=== PATIENT | male | born 1970 | race Caucasian/White ===

== ENCOUNTER → 2019-05-21 13:12 | Outpatient (CLI) | payer OTHER, SELFPAY | PROVIDERS: Visit Provider Physician Assistant | DX: L08.9 Local infection of the skin and subcutaneous tissue, unspecified (principal) | CPT/HCPCS: 87070; 87077; 87147; 87186; 87205 ==

== ENCOUNTER 2023-12-16 14:19 | Observation (INO) | payer OTHER, BC, SELFPAY ==
[2023-12-16] VITALS (41 sets, daily range): BP systolic 116–173; BP diastolic 78–100; PULSE 90–136; RESP 10–22; TEMP 36.3–36.8; O2SAT 91–100; BMI 28.5; BMI 27.6
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
[2023-12-16 15:01] LABS: Add Manual Diff / Slide Review NO; Basophils Absolute Auto 0 /uL (0-100); Basophils Percent Auto 0.6 % (0-2); Eosinophils Absolute Auto 0 /uL (0-450); Eosinophils Percent Auto 0.1 % (2-4); Hematocrit 44.2 % (41-53); Hemoglobin 15.1 g/dL (13.5-17.5); Lymphocytes Absolute Auto 1800 /uL (1100-4500); Lymphocytes Percent Auto 29.5 % (25-40); Mean Corpuscular HGB Conc 34.1 % (30-36); Mean Corpuscular Hemoglobin 31.9 PG (26-34); Mean Corpuscular Volume 93.4 fL (80-100); Monocytes Absolute Auto 600 /uL (0-900); Monocytes Percent Auto 10.4 % (3-14); Neutrophils Absolute Auto 3600 /uL (1500-7000); Neutrophils Percent Auto 59.4 % (50-75); Platelet Count 188 X10^3/uL (150-400); Red Blood Cell Count 4.73 X10^6/uL (4.5-5.9); Red Cell Distribution Width 13.2 % (11.6-14.8)
[2023-12-16 15:03] LABS: INR 1.2 (0.9-1.3); Prothrombin Time 13.8 SECONDS (9.4-12.5)
[2023-12-16 15:05] LABS: PTT Partial Thromboplastin Tim 34 SECONDS (25.1-36.5)
[2023-12-16 15:09] LABS: Alanine Aminotransferase 69 IU/L (<50); Albumin 4.5 g/dL (3.5-5.0); Albumin Globulin Ratio 1.5 (1.0-2.8); Alkaline Phosphatase 92 U/L (38-126); Aspartate Aminotransferase 117 IU/L (17-59); BUN Creatinine Ratio 11.3 (6-22); Blood Urea Nitrogen 7 mg/dL (9-20); Calcium 9.3 mg/dL (8.4-10.2); Carbon Dioxide 19 mmol/L (22-32); Chloride 101 mmol/L (98-107); Creatine Kinase 70 U/L (55-170); Estimated Glomerular Filt Rate > 60 mL/min (>60); Ethanol (ETOH) 83 mg/dL; Globulin 3.1 g/dL (1.7-4.1); Glucose 394 mg/dL (70-100); HEMOLYSIS 17 (0-50); Lipase 158 U/L (23-300); Potassium 4.2 mmol/L (3.4-5.1); Sodium 134 mmol/L (137-145); Total Protein 7.6 g/dL (6.3-8.2)
[2023-12-16] MEDS: SODIUM CHLORIDE 0.9% 1,000 ML 1000 ML IV (15:15)
[2023-12-16] MEDS: HYDROMORPHONE 0.5 MG INJ IV (15:16)
[2023-12-16] MEDS: ONDANSETRON 4 MG/2 ML INJ IV (15:16)
[2023-12-16 15:20] LABS: Troponin I < 0.012 ng/mL (0.01-0.034)
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
[2023-12-16] MEDS: TRANEXAMIC ACID 1,000 MG in SODIUM CHLORIDE 0.9% 100 ML 200 MG IV (15:36)
[2023-12-16 16:10] LABS: UR Morphine/Opiate cutoff 300 Negative (Negative); Ur Creatinine Normal (Normal); Ur Specific Gravity Normal (Normal); Urine Amphetamines Negative (Negative); Urine Barbiturates Negative (Negative); Urine Benzodiazepines Negative (Negative); Urine Cocaine Negative (Negative); Urine MDMA Negative (Negative); Urine Methadone Negative (Negative); Urine Methamphetamines Negative (Negative); Urine Oxycodone Negative (Negative); Urine Phencyclidine Negative (Negative); Urine Tetrahydrocannabinol Positive (Negative); Urine Tricyclic Antidepressant Negative (Negative); Urine pH Normal (Normal)
[2023-12-16] MEDS: HYDROMORPHONE 1 MG INJ IV (16:11)
--- NOTE | 2023-12-16 16:15 | PC.NURSE ---
Green tinge noted to both patient's wrists. Pt reports wearing copper bracelets that turn his wrist green at times. Pt denies any pain in both wrists.
[2023-12-16 16:28] LABS: Bacteria Urine Occasional (0-1); Culture Indicated Urine Cult Not Indicated; RBC Urine 5-10/HPF (0-5/HPF); Squamous Epithelial Cell Urine 0-1 /HPF (0-5/HPF); Urine Volume 10mL (spun); WBC Urine 0-1/HPF (0-5/HPF)
[2023-12-16 16:33] LABS: Reflexed Lactate in 2 Hours Y
--- NOTE | 2023-12-16 17:30 | PC.NURSE ---
7023 Cervical spine cleared by Dr Denise. C Collar removed
[2023-12-16 17:37] LABS: Hematocrit 41.6 % (41-53); Hemoglobin 14.2 g/dL (13.5-17.5)
[2023-12-16 17:49] LABS: Lactate 2HR (Lactic Acid Rflx) 2.5 mmol/L (0.7-2.1)
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
[2023-12-16] MEDS: SODIUM CHLORIDE 0.9% 1,000 ML 100 ML IV (18:14)
[2023-12-16] MEDS: GABAPENTIN 300 MG CAPSULE PO ×2 (18:15→21:03)
--- NOTE | 2023-12-16 18:40 | PC.NURSE ---
1455: Abrasions noted to LEFT elbow. Contusions noted to RIGHT and LEFT knee.
--- NOTE | 2023-12-16 20:35 | PC.NURSE ---
Clarified orders with Dr. Sanchez. COntinue BS Q6 hours. General diet. Start home meds of lisinopril and glipizide. No repeat lactate, continue fluids.
[2023-12-16] MEDS: OXYCODONE IR 5 MG TABLET PO (21:03)
[2023-12-16] MEDS: IBUPROFEN 600 MG TABLET PO (21:03)
[2023-12-16] MEDS: ACETAMINOPHEN 325 MG TABLET 650 MG PO (21:06)
[2023-12-16] MEDS: INSULIN LISPRO 100 UNIT/ML 3ML VIAL SUBCUT (21:30)
[2023-12-17] VITALS: BP 130/76; PULSE 87; RESP 18; TEMP 36.4; O2SAT 99
[2023-12-17] MEDS: SODIUM CHLORIDE 0.9% 1,000 ML 100 ML IV ×2 (00:59→11:08)
[2023-12-17 03:00] VITALS: BP 129/71; PULSE 91; RESP 17; TEMP 36.3; O2SAT 97
[2023-12-17] MEDS: ACETAMINOPHEN 325 MG TABLET 650 MG PO ×3 (03:06→14:49)
[2023-12-17] MEDS: IBUPROFEN 600 MG TABLET PO ×3 (03:07→14:48)
[2023-12-17] MEDS: INSULIN LISPRO 100 UNIT/ML 3ML VIAL SUBCUT ×3 (03:51→12:32)
[2023-12-17 05:31] LABS: Hematocrit 39.4 % (41-53); Hemoglobin 13.7 g/dL (13.5-17.5); Mean Corpuscular HGB Conc 34.8 % (30-36); Mean Corpuscular Hemoglobin 32.3 PG (26-34); Mean Corpuscular Volume 92.8 fL (80-100); Platelet Count 147 X10^3/uL (150-400); Red Blood Cell Count 4.24 X10^6/uL (4.5-5.9); Red Cell Distribution Width 12.9 % (11.6-14.8); White Blood Cell Count 6.2 X10^3/uL (4.5-11.0)
[2023-12-17 05:43] LABS: Alanine Aminotransferase 53 IU/L (<50); Albumin 3.5 g/dL (3.5-5.0); Albumin Globulin Ratio 1.3 (1.0-2.8); Alkaline Phosphatase 75 U/L (38-126); Aspartate Aminotransferase 70 IU/L (17-59); BUN Creatinine Ratio 21.4 (6-22); Bilirubin Total 1.3 mg/dL (0.2-1.3); Blood Urea Nitrogen 12 mg/dL (9-20); Calcium 8.6 mg/dL (8.4-10.2); Carbon Dioxide 25 mmol/L (22-32); Chloride 106 mmol/L (98-107); Estimated Glomerular Filt Rate > 60 mL/min (>60); Globulin 2.7 g/dL (1.7-4.1); Glucose 227 mg/dL (70-100); HEMOLYSIS 15 (0-50); Potassium 3.8 mmol/L (3.4-5.1); Sodium 135 mmol/L (137-145); Total Protein 6.2 g/dL (6.3-8.2)
[2023-12-17 08:00] VITALS: BP 135/74; PULSE 89; RESP 20; TEMP 36.6; O2SAT 97
[2023-12-17] MEDS: GABAPENTIN 300 MG CAPSULE PO ×2 (09:20→14:49)
[2023-12-17] MEDS: OXYCODONE IR 5 MG TABLET PO (11:08)
[2023-12-17 12:25] VITALS: BP 156/65
[2023-12-17] MEDS: lisinopriL 20 MG TABLET PO (12:25)
[2023-12-17] MEDS: glipiZIDE 5 MG TABLET 10 MG PO (12:28)
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
--- NOTE | 2023-12-17 13:43 | CM.DPC ---
D/C Plan Cont. Met with pt, per his request, to discuss his insurance concerns. He had not provided it at time of admission, and was needing to talk with one of the admission counselors to verify his insurance coverage for this hospital stay. He will d/c this afternoon. Emailed the Admission Counselors and requested an expedient visit to address this need. No further DCP needs identified at this time.
== END 2023-12-17 15:51 | disposition home or self-care (01) ==
LOC: ED 15:49 → AC 18:01
PROVIDERS: Admitting Provider Surgery; Emergency Provider Emergency Medicine; Referring Provider Emergency Medicine; Visit Provider Surgery
DX: R51.9 Headache, unspecified (principal); R07.89 Other chest pain; R10.9 Unspecified abdominal pain; S16.1XXA Strain of muscle, fascia and tendon at neck level, initial encounter; R00.0 Tachycardia, unspecified; V48.5XXA Car driver injured in noncollision transport accident in traffic accident, initial encounter; Y92.410 Unspecified street and highway as the place of occurrence of the external cause
CPT/HCPCS: 36415; 70450; 71260; 72125; 74177; 80053; 80305; 80320; 81003; 81015; 82550; 82962; 83605; 83690; 84484; 85014; 85018; 85025; 85027; 85610; 85730; 86850; 86900; 86901; 93005; 96361; 96365; 96372; 96375; 96376; 99284; 99291; G0378; G0390; J1170; J1815; J2405; Q9967

== ENCOUNTER → 2024-03-01 09:02 | Outpatient (CLI) | payer BC, SELFPAY ==
[2023-12-16 18:57] VITALS: BMI 27.6
[2024-03-01 10:08] LABS: Add Manual Diff / Slide Review NO; Basophils Absolute Auto 100 /uL (0-100); Eosinophils Absolute Auto 100 /uL (0-450); Eosinophils Percent Auto 0.7 % (2-4); Hematocrit 46.7 % (41-53); Hemoglobin 16.2 g/dL (13.5-17.5); Lymphocytes Absolute Auto 1900 /uL (1100-4500); Lymphocytes Percent Auto 26.2 % (25-40); Mean Corpuscular HGB Conc 34.7 % (30-36); Mean Corpuscular Hemoglobin 31.9 PG (26-34); Monocytes Absolute Auto 700 /uL (0-900); Monocytes Percent Auto 9.6 % (3-14); Neutrophils Absolute Auto 4600 /uL (1500-7000); Neutrophils Percent Auto 62.5 % (50-75); Platelet Count 208 X10^3/uL (150-400); Red Blood Cell Count 5.07 X10^6/uL (4.5-5.9); Red Cell Distribution Width 12.9 % (11.6-14.8); White Blood Cell Count 7.4 X10^3/uL (4.5-11.0)
[2024-03-01 10:31] LABS: Hemoglobin A1C% w Est Avg Glu 10.1 % (4.0-6.0)
[2024-03-01 10:32] LABS: Alanine Aminotransferase 119 IU/L (<50); Albumin 4.7 g/dL (3.5-5.0); Albumin Globulin Ratio 1.4 (1.0-2.8); Alkaline Phosphatase 112 U/L (38-126); Aspartate Aminotransferase 108 IU/L (17-59); BUN Creatinine Ratio 8.7 (6-22); Bilirubin Total 0.8 mg/dL (0.2-1.3); Blood Urea Nitrogen 6 mg/dL (9-20); Calcium 9.4 mg/dL (8.4-10.2); Carbon Dioxide 25 mmol/L (22-32); Chloride 95 mmol/L (98-107); Cholesterol 188 mg/dL (140-199); Estimated Glomerular Filt Rate > 60 mL/min (>60); Globulin 3.3 g/dL (1.7-4.1); Glucose 400 mg/dL (70-100); HDL Cholesterol 65 mg/dL (40-60); HEMOLYSIS < 15 (0-50); LDL Cholesterol Calculated 96 mg/dL (<100); Sodium 131 mmol/L (137-145); Triglycerides 137 mg/dL (35-150)
== END ==
PROVIDERS: PCP Family Medicine; Referring Provider Family Medicine; Visit Provider Family Medicine
DX: I10 Essential (primary) hypertension (principal); E11.9 Type 2 diabetes mellitus without complications
CPT/HCPCS: 36415; 80053; 80061; 83036; 85025

== ENCOUNTER → 2024-03-08 12:14 | Outpatient (CLI) | payer BC, SELFPAY ==
[2023-12-16 18:57] VITALS: BMI 27.6
--- NOTE | 2024-03-08 15:00 | DI.CT.S_ITS ---
PROCEDURE: CT ABDOMEN PELVIS W CON INDICATIONS: evaluate previous trauma TECHNIQUE: After the administration of intravenous contrast, axial sections acquired from the lung bases to the pubic symphysis. Coronal and sagittal reformats were performed. For radiation dose reduction, the following was used: automated exposure control, adjustment of mA and/or kV according to patient size. COMPARISON: [facility], CT, CT ABDOMEN PELVIS WITH CONTRAST, 12/21/2023, 23:36. FINDINGS: Image quality: Diagnostic. Lower Chest: No significant findings. ABDOMEN: Liver: Hepatic steatosis. A few foci of hyperattenuation in the liver, including a 9 mm lesion in segment 6 (series 2, image 37), and a 1.3 cm lesion at the liver dome (series 2, image 14). Additional subcentimeter hypoattenuating lesions, too small to characterize by CT. Gallbladder: No radiopaque gallstones or wall thickening. Biliary ducts: No biliary dilation. Pancreas: No ductal dilation. Spleen: Size is within normal limits. Adrenal Glands: No adrenal nodules. Kidneys and Ureters: No hydronephrosis. No solid mass. No complex renal cystic lesion which requires follow up. Fluid collection in the left perirenal space measures a 7.2 x 3.3 cm, previously 3.2 x 4.1 cm on 12/21/2023. This exerts mass effect along the superior pole of the left kidney, similar to prior. Stomach and Bowel: Normal colonic caliber, without significant wall thickening. Colonic diverticulosis without evidence of diverticulitis. Peritoneum: No abnormal intraperitoneal fluid. No free air. Ventral Wall: No significant ventral hernia. Abdominal Nodes: No retroperitoneal or mesenteric adenopathy by size criteria. Vessels: Aorta and inferior vena cava are normal in size. PELVIS: Pelvic Organs: Unremarkable. Bladder: No bladder wall thickening, accounting for underdistention. Pelvic Nodes: No enlarged lymph nodes. Miscellaneous: No inguinal hernias are seen. Bones: No aggressive osseous abnormality. IMPRESSION: Slight interval growth of the cystic collection in the left perirenal space, with mass effect upon the left kidney. Lesion is probably benign, sequela of cyst rupture or trauma, given no internal complexity. However, given interval growth, consider complete characterization with MRI (renal mass protocol). Hepatic steatosis. Small hyperattenuating lesions are present within the liver, usually representing flash filling hemangiomas or vascular shunts. Given underlying risk factors (hepatic steatosis), this should be further evaluated with MRI. Dictated by: Jesus Hensley M.D. on 03/08/2024 at 14:02 Approved by: Jesus Hensley M.D. on 03/08/2024 at 14:24
== END ==
PROVIDERS: PCP Family Medicine; Referring Provider Family Medicine; Visit Provider Family Medicine
DX: S36.039A Unspecified laceration of spleen, initial encounter (principal); K76.0 Fatty (change of) liver, not elsewhere classified; R19.00 Intra-abdominal and pelvic swelling, mass and lump, unspecified site; Z87.828 Personal history of other (healed) physical injury and trauma
CPT/HCPCS: 74177; Q9967

== ENCOUNTER → 2024-03-14 12:49 | Outpatient (CLI) | payer BC, SELFPAY ==
[2023-12-16 18:57] VITALS: BMI 27.6
--- NOTE | 2024-03-14 12:50 | DI.MRI.S_ITS ---
PROCEDURE: MR ABDOMEN WO/W CON INDICATIONS: CT showed cyst with interval growth TECHNIQUE: Coronal HASTE through abdomen and pelvis; axial 2D FLASH in- and jms-cm-opibp (with and without fat saturation), and breath-hold T2 FSE from the hepatic dome to the bottom of the kidneys. Coronal HASTE MR urogram of kidneys and bladder. Dynamic coronal VIBE during IV gadolinium administration; postgadolinium axial VIBE or 2D FLASH with fat saturation from the hepatic dome through the kidneys. COMPARISON: [facility], CT, CT CHEST ABD PEL W CON, 12/16/2023, 14:59. [facility], CT, CT ABDOMEN PELVIS W CON, 03/08/2024, 13:14. [facility], CT, CT ABDOMEN PELVIS WITH CONTRAST, 12/21/2023, 23:36. FINDINGS: Image quality: Diagnostic. Kidneys and Ureters: No hydronephrosis. No solid mass. Left kidney superior pole cyst measuring 5.1 x 3.6 cm, (11/13), previously remeasured 4.7 x 3 cm, and 4.2 x 2.7 cm, and more remotely 10.1 x 7.6 cm on 12/16/2023. Homogeneous T2 hyperintense. OTHER: Lung bases: Prior inferior right-sided rib fractures. No pleural effusion. Liver: A few tiny cysts. Hepatic steatosis. A few small enhancing foci are again seen, (, 54). No convincing restricted diffusion. Gallbladder: No gallstones or wall thickening. Biliary ducts: No biliary dilation. Pancreas: No ductal dilation. Spleen: Size is within normal limits. Adrenal Glands: No adrenal nodules. Stomach and Bowel: Normal colonic caliber, without significant wall thickening. Peritoneum: No abnormal intraperitoneal fluid. No free air. Ventral Wall: No hernia. Abdominal Nodes: No retroperitoneal or mesenteric adenopathy by size criteria. Vessels: Aorta and inferior vena cava are normal in size. Bones: Small T2 hyperintense foci at L1, (02/09). Suspect small intraosseous hemangioma. IMPRESSION: 1. Left kidney superior pole cyst measuring 5.1 cm, slightly increased in size. Of note, the cyst head previously substantially decreased in size. Previously measuring 10.1 cm on in November 2023. No suspicious enhancement. Suspect a benign cyst which is reaccumulating. 2. Hepatic steatosis. Small enhancing foci in the liver. Suspect small benign hemangiomas or perfusion abnormalities. Consider follow-up CT abdomen and pelvis or MRI renal protocol. Dictated by: Cisco Hicks M.D. on 03/14/2024 at 15:30 Approved by: Cisco Hicks M.D. on 03/14/2024 at 15:50
== END ==
PROVIDERS: PCP Family Medicine; Referring Provider Family Medicine; Visit Provider Family Medicine
DX: N28.89 Other specified disorders of kidney and ureter (principal); N28.1 Cyst of kidney, acquired; K76.0 Fatty (change of) liver, not elsewhere classified; K76.9 Liver disease, unspecified
CPT/HCPCS: 74183; A9579

== ENCOUNTER → 2024-05-04 11:02 | Outpatient (CLI) | payer BC, SELFPAY ==
[2023-12-16 18:57] VITALS: BMI 27.6
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
== END ==
PROVIDERS: PCP Family Medicine; Referring Provider Family Medicine
DX: E11.9 Type 2 diabetes mellitus without complications (principal); Z71.3 Dietary counseling and surveillance; Z79.4 Long term (current) use of insulin; Z79.84 Long term (current) use of oral hypoglycemic drugs
CPT/HCPCS: G0108

== ENCOUNTER → 2024-05-20 14:52 | Outpatient (CLI) | payer BC, SELFPAY ==
[2023-12-16 18:57] VITALS: BMI 27.6
--- NOTE | 2024-05-20 17:49 | DIAB.MNT ---
Initial Diabetes Medical Nutrition Therapy Assessment Name: Igor Howard Date: 05/20/24 Time: 3-415p Dx: Type II Diabetes Provider: Reva Costa presents for MNT DM visit. Reports having T2Dm for a few years and has not had previous DM education. Does endorse continued social barriers and stress with disability leave of absence from work being rejected. Worries immensely about financial situation. May be able to move in with father, but does not prefer this. Feels his health is a barrier to returning to work. Financial barriers impact his ability to access food. endorses $60 of SNAP benefits. Has not been able to reduce spiked tea intake. Each tea seems to have 50g CHO. 250-300g CHO just from spiked tea per day. Today combined with two slices of pizza he is experiencing BG in the 390s. States he sips on spiked tea instead of water during the day. States his water filter needs replacement and he has the filter. Diet recall: 12-1p: 2 pizza slices 6-8p: 2 pizza slices Limited water TID Spiked tea: 5-6 per day Plans to start naltrexone. Continued stress is impacting his ability to reduce ETOH per report. Endorses nausea, emesis, and fatigue, which may be r/t elevated BG and excessive CHO and ETOH intake. Started counseling. Has 2 daughters, one that he confides in though lives in [place]. Anthropometrics: Ht: 6' Wt: 207# 04/2024 Physical Activity: No program. Self-Monitoring Blood Glucose: Checking FBG. Denies any s/s of hypoglycemia. Very slight improvement in FBG but still elevated. If CHO cannot be reduced, may need additional DM medication. Today we placed a Dexcom G7 sample per pt request. RD/CDCES thinks this is a recommended therapy to help pt reduce BG, avoid hypoglycemia, and determine BG trends. Date Pre Post Pre Post Pre Post HS 05/14 254 05/15 259 05/16 251 05/17 206 05/18 246 05/19 252 05/20 224 Diabetes Medications: 42u Glargine 10mg Glipizide Pertinent Labs: HgA1c: 10.1% 02/2024 Past Medical History: (Last Updated 03/01/24 @ 08:40 by Cherie Ardon DO) Acute strain of neck muscle Diabetes Hypertension Nutrition Rx: Carbohydrates: Meal:45-60g Snack:15-30g Nutrition Diagnosis: - Excessive ETOH intake r/t stress drinking and cravings aeb pt report - Excessive CHO intake r/t ETOH spiked tea intake and stage of change preparation aeb diet recall and BG Intervention: This participant was very receptive. Provided appropriate educational handouts. Discussed the following topics: Social barriers, food insecurity and resources Strategies for reducing ETOH intake CGM Sample Reviewed CGM use and equipment Discussed when to check blood sugars using finger stick Reviewed high and low blood sugar signs/symptoms and treatment options Provided education for self-administration of CGM placement Educated patient on alarm settings Discussed how to remove and dispose of equipment Nutrition recommendations Plate Method, Carb counting, Carb recs, Carbs in spiked tea Hydration recommendations and strategies Rule of 15 for low BG Reducing ETOH spiked teas may greatly reduce BG, in which case he should reduce insulin by 10-20u prn Created SMART goals for patient self-care and success. Goals: Look into eye exam- not met Call 211 for resources- not met Reduce FBG by increase in basal insulin (2u q 2-3 days, do not go past 40u)- met Download CGM apps - met Aim fro 4 spiked tea, instead of 5-6- new Replace water filter- new Drink water throughout the day- new Practice Rule of 15 for lows prn- new Wear CGM- new Follow-up: TEDDY GUNN follow-up in 2-3 weeks. Messaged provider regarding CGM rx and plan for insulin. Mirian Collins RDN, LUIS A Certified Diabetes Care and Staffing Assistant P: [phone] Thank you for this referral
== END ==
PROVIDERS: PCP Family Medicine; Referring Provider Family Medicine
DX: E11.9 Type 2 diabetes mellitus without complications (principal); Z79.84 Long term (current) use of oral hypoglycemic drugs; Z79.4 Long term (current) use of insulin; Z71.3 Dietary counseling and surveillance
CPT/HCPCS: 97802

== ENCOUNTER → 2024-06-02 15:00 | Outpatient (CLI) | payer BC, SELFPAY ==
[2023-12-16 18:57] VITALS: BMI 27.6
--- NOTE | 2024-06-23 08:28 | DIAB.MNTFU ---
Follow-up Diabetes Medical Nutrition Therapy Assessment Name: Igor Howard Date: 06/02/24 Time: 305-405p Dx: Type II Diabetes Provider: Reva Costa presents for follow-up MNT DM visit. He is more optimistic today since he is seeing some progress in life in general. He is happy his insurance will cover CGM. He is down to 4 ETOH spiked teas per day, from 5-6/day. States the naltrexone was helpful in this change. Endorses slightly better sleep with medication helping restless leg. Still having difficulty with disability claims and finances, which is a big stress. he has applied for and approved for SNAP benefits. Considering a lower level job to help him financially while claims are being processed. would drink more water but needs to change filter, open to sf beverage options. States he would like to replace ETOH with mendel beer nonalcoholic, but this has 30g CHO per serving. Diet recall: 12-1p: 2 pizza slices 6-8p: 2 pizza slices or soup Limited water TID Spiked tea: 4 per day Anthropometrics: Ht: 6' Wt: 207# 04/2024 Physical Activity: No program. Self-Monitoring Blood Glucose: Wore CGM, persistent hyperglycemia. Likely needs additional DM meds, possibly mealtime insulin. Will share results with PCP and determine a plan. Notes h/o GI upset with Metformin. No hypoglycemia noted despite ETOH intake, likely due to sugared ETOH choices. TIR: 73% very high 24% high 3% in range 0% low 0% very low avmg/dl std dev: 70 mg/dl GMI: 10.6% variation: 22.9% Diabetes Medications: 42u Glargine 10mg Glipizide Pertinent Labs: HgA1c: 10.1% 02/2024 Past Medical History: (Last Updated 03/01/24 @ 08:40 by Cherie Ardon DO) Acute strain of neck muscle Diabetes Hypertension Nutrition Rx: Carbohydrates: Meal:45-60g Snack:15-30g Nutrition Diagnosis: - Excessive ETOH intake r/t stress drinking and cravings aeb pt report- improving/in progress - Excessive CHO intake r/t ETOH spiked tea intake and stage of change preparation aeb diet recall and BG - in progress Intervention: This participant was very receptive. Provided appropriate educational handouts. Discussed the following topics: Beverage choices with less CHO Hydration strategies Review of CGM data Stress management and potential for low level job Stress impact on health Label reading and carb recs What is going well for him Created SMART goals for patient self-care and success. Goals: Aim fro 4 spiked tea, instead of 5-6- met Replace water filter- not met Drink water throughout the day- in progress Practice Rule of 15 for lows prn- continued Wear CGM- met Try SF beverage options- new Aim for 3 ETOH spiked teas per day- new Look into low level job opportunities- new Follow-up: TEDDY GUNN follow-up in 2-3 weeks Mirian Collins RDN, LUIS A Certified Diabetes Care and Church Musician P: [phone] Thank you for this referral
== END ==
PROVIDERS: PCP Family Medicine; Referring Provider Family Medicine
DX: E11.65 Type 2 diabetes mellitus with hyperglycemia (principal); Z71.3 Dietary counseling and surveillance; G25.81 Restless legs syndrome; Z79.4 Long term (current) use of insulin; Z79.84 Long term (current) use of oral hypoglycemic drugs; Z68.27 Body mass index [BMI] 27.0-27.9, adult
CPT/HCPCS: 97803

== ENCOUNTER → 2024-06-09 16:50 | Outpatient (CLI) | payer BC, SELFPAY ==
[2023-12-16 18:57] VITALS: BMI 27.6
--- NOTE | 2024-06-23 08:38 | DIAB.FU ---
Follow-up Diabetes Education Assessment Name: Igor Howard Date: 06/09/24 Time: 516-890o Dx: Type II Diabetes Provider: Reva Costa presents for virtual DM visit via [facility]. Endorses drinking more non-ETOH tea recently. In the process of reducing sweetened ETOH intake. Replaced water filter, which helps with willingness to drink more water. Continues to have stress with financials and work leave situation. Endorses meditation, golf, drinking, marijuana, and video games (which he usually drinks ETOH during), is how he manages stress usually. States he may be able to afford going to golf course just to putt or range. Still considering a lower level job for financial reasons, but not committed to this idea. Was rx'd new med, Gisela. Has questions regarding this, ie arabella, . PCP would like for him to start SGLT2i and mealtime insulin, and continue sulfonlurea. Eating 2 meals per day: Am snack of almonds or apple, Dinner pasta or chowder. Spiked teas x 3-4 daily-- down from 5-6 Anthropometrics: Ht: 6' Wt: 207# 04/2024 Physical Activity: No program. Self-Monitoring Blood Glucose: Checking FBG, all elevated above 160mg/dl. Wore CGM up until last visit, which indicated consistent hyperglycemia. Most of the day/night he is >180mg/dl. States G7 may not be available, but he plans to call pharmacy regarding this. Date Pre Post Pre Post Pre Post HS 06/03 200 06/04 210 06/05 192 06/06 221 06/07 169 06/08 195 06/09 201 Previous TIR: 73% very high 24% high 3% in range 0% low 0% very low avmg/dl std dev: 70 mg/dl GMI: 10.6% variation: 22.9% Diabetes Medications: 42u Glargine 10mg Glipizide 10mg Jardiance 4u Aspart TID (with correction, up to 15u TID based on basal rate) Pertinent Labs: HgA1c: 10.1% 02/2024 Past Medical History: (Last Updated 03/01/24 @ 08:40 by Cherie Ardon DO) Acute strain of neck muscle Diabetes Hypertension Intervention: This participant was very receptive. Provided appropriate educational handouts. Discussed the following topics: Strategies for reducing ETOH intake CGM access troubleshooting Medication management: insulin injections at meals, Jardiance (SE, discussing cost with pharmacy/insurance) Rule of 15 for lows review Stress management strategies Created SMART goals for patient self-care and success. Goals: Replace water filter- met Practice Rule of 15 for lows prn- continued Try SF beverage options- in progress Aim for 3 ETOH spiked teas per day- improved Look into low level job opportunities- in progress Call pharmacy about meds- new Call pharmacy about CGM- new Consider golf 1x per week for stress management- new Follow-up: TEDDY GUNN follow-up in 2-3 weeks Mirian Collins RDN, LUIS A Certified Diabetes Care and Software Program Manager P: [phone] Thank you for this referral
== END ==
LOC: DIET 06-10 07:35
PROVIDERS: PCP Family Medicine; Referring Provider Family Medicine
DX: E11.9 Type 2 diabetes mellitus without complications (principal); Z71.3 Dietary counseling and surveillance; Z68.27 Body mass index [BMI] 27.0-27.9, adult

== ENCOUNTER → 2024-06-23 11:24 | Outpatient (CLI) | payer BC, SELFPAY ==
[2023-12-16 18:57] VITALS: BMI 27.6
--- NOTE | 2024-07-06 15:39 | DIAB.FU ---
Addendum entered by Mirian Collins 07/26/24 16:53: Phone call check in today. Lost employer insurance. Just started [facility] coverage-- [facility] [place]. CGM sensor . States CGM will not be affordable, $80/sensor. Taking mealtime insulin, 3-5u depending on carb portions. Agrees to call insurance sometime over the next few weeks to determine what the issue is about full coverage for CGM. Encouraged fingersticks in the meantime. Addendum entered by Mirian Collins 07/19/24 16:59: Issues with CGM sensor. Tried to replace with rx moss picker but pharmacy quoted $600. Not wearing a CGM. Not taking meal time insulin consistently. Discussed fingersticks and taking mealtime insulin. Encouraged troubleshooting CGM cost with pharmacy and Dexcom for replacement with problematic sensor. Will f/u next week. Addendum entered by Mirian Collins 07/12/24 16:28: Pt unable to access our virtual visit due to not being home. Is able to afford mealtime insulin. Will try 3u mealtime insulin at first meal and 4u at bigger evening meal Reviewed s/s and treatment of lows. Will r/s our visit within the next 2-3 weeks. Original Note: Follow-up Diabetes Education Assessment Name: Igor Howard Date: 06/23/24 Time: [id number] Dx: Type II Diabetes Provider: Reva Costa presents for virtual DM visit via [employer] [facility]. Father passed this week. Does have support with two sisters. Stopped the spiked tea and switched to unsweetened ETOH seltzers. Comparable to 3-4 spiked teas, but less sugar Increased stress with losing father. Discussed stress management especially during this time Not taking Jardiance due to waiting on insurance coverage. States short acting was $300, so could not pick this up. Likely needs change brand of insulin for better coverage. RD to call pharmacy. Pharmacy: [facility] Anthropometrics: Ht: 6' Wt: 207# 04/2024 Physical Activity: No program. Self-Monitoring Blood Glucose: Wearing CGM. Improved time in range, though still below goal of 70% or more. Improved BG attributed to reduced sugar intake with ETOH choices per report. Has not started any other Dm med. Today TIR: 43% very high 36% high 21% in range 0% low 0% very low avmg/dl std dev: 78 mg/dl GMI: 9.3% variation: 31.3% Previous TIR: 73% very high 24% high 3% in range 0% low 0% very low avmg/dl std dev: 70 mg/dl GMI: 10.6% variation: 22.9% Diabetes Medications: 42u Glargine 10mg Glipizide 10mg Jardiance-- not started 4u Aspart TID (with correction, up to 15u TID based on basal rate)-- not started Pertinent Labs: HgA1c: 10.1% 02/2024 Past Medical History: (Last Updated 03/01/24 @ 08:40 by Cherie Ardon DO) Acute strain of neck muscle Diabetes Hypertension Intervention: This participant was very receptive. Provided appropriate educational handouts. Discussed the following topics: Strategies for reducing ETOH intake CGM review and trends and goals Strategies for DM medications Stress management strategies Created SMART goals for patient self-care and success. Goals: Practice Rule of 15 for lows prn- continued Try SF beverage options- met Call pharmacy about meds- met Call pharmacy about CGM- met Consider golf 1x per week for stress management- in progress Continue lower sugar ETOH option- new Follow-up: TEDDY GUNN follow-up in 2-3 weeks. After this visit, RAMANA called his pharmacy. States there is a PA req for Jardiance and to switch meal time insulin types. After messaging, provider at that time wanted to stay with increased Sulfonylurea. Since that time, pt has req changes for insulin type and current plan is to try meal time insulin with increased Sulfonylurea dose. Concerns for hypoglycemia. Would rec d/c of Sulfonylurea and continue with insulin therapy and add Jardiance with PA if insurance can cover adequately. Will continue to monitor. Mirian Collins RDN, LUIS A Certified Diabetes Care and Equipment Processor P: [phone] Thank you for this referral
== END ==
PROVIDERS: PCP Family Medicine; Referring Provider Family Medicine
DX: E11.69 Type 2 diabetes mellitus with other specified complication (principal); Z71.3 Dietary counseling and surveillance; Z68.27 Body mass index [BMI] 27.0-27.9, adult; R74.01 Elevation of levels of liver transaminase levels
CPT/HCPCS: G0108

== ENCOUNTER → 2024-08-04 14:11 | Outpatient (CLI) | payer BC, SELFPAY ==
[2023-12-16 18:57] VITALS: BMI 27.6
--- NOTE | 2024-08-09 16:57 | DIAB.MNTFU ---
Addendum entered by Mirian Collins 08/10/24 16:37: service date 08/04/24 Original Note: Follow-up Diabetes Medical Nutrition Therapy Assessment Name: Igor Howard Date: 08/09/24 Time: 205-3p Dx: Type II Diabetes Provider: Reva Costa presents for virtual DM visit via [employer] [facility]. Reports reduced nausea recently. Increased stress with managing father's passing and estate. Seeing therapist twice per week. Trying to make diet changes. ETOH intake is back up to 6-10 per day of the lower CHO option (3g CHO per serving). Taking short acting insulin 3-5u per meal, sometimes forgetting. Taking AM basal of 42u. Since d/c of sulfonylurea BG have increased. May need more balanced consistent basal/bolus regimen, and/or may benefit from increased basal rate. Given EtoH intake and insulin tx, would not rec restarting sulfonylurea. Diet recall: 10-2p: bagel with butter and or cheese or eng muffin with pb 7-8p: pasta last night using less pasta and added meat sn: apple or energy bar with 31g CHO Anthropometrics: Ht: 6' Wt: 207# 04/2024 Physical Activity: No program. Self-Monitoring Blood Glucose: Wearing CGM. Reduced time in range likely r/t d/c of sulfonlyurea without increase in basal insulin and inconsistent bolus pre meal insulin. Otherwise, similar numbers as last visit. Today TIR: 48% very high 41% high 11% in range 0% low <1% very low avmg/dl std dev: 73 mg/dl GMI: 9.6% variation: 28% Previous TIR: 43% very high 36% high 21% in range 0% low 0% very low avmg/dl std dev: 78 mg/dl GMI: 9.3% variation: 31.3% Diabetes Medications: 42u Glargine 10mg Glipizide 10mg Jardiance-- not started -- d/c 3-5u Aspart TID (with correction, up to 15u TID based on basal rate)-- not started Pertinent Labs: HgA1c: 10.1% 02/2024 Past Medical History: (Last Updated 07/19/24 @ 14:37 by Alex Tam DO) Acute strain of neck muscle Alcohol use disorder, severe, dependence Depression, unspecified Diabetes Hypertension Trauma and stressor-related disorder Nutrition Rx: Carbohydrates: Meal:45g Snack:15-30g Nutrition Diagnosis: - Excessive ETOH intake r/t stress drinking and cravings aeb pt report- in progress - Excessive CHO intake r/t ETOH spiked tea intake and stage of change preparation aeb diet recall and BG - improved Intervention: This participant was very receptive. Provided appropriate educational handouts. Discussed the following topics: Strategies for reducing ETOH intake CGM review and trends and goals Strategies for DM medications Stress management strategies Medication management: taking mealtime insulin consistently, potential for needing higher basal dose Created SMART goals for patient self-care and success. Goals: Practice Rule of 15 for lows prn- continued Continue lower sugar ETOH option- met Try 8-10u mealtime insulin- new Keep ETOH to 6 or less- new Follow-up: TEDDY GUNN follow-up in 1 week Mirian Collins RDN, LUIS A Certified Diabetes Care and Orthopedic Rn P: [phone] Thank you for this referral
== END ==
PROVIDERS: PCP Family Medicine; Referring Provider Family Medicine
DX: E11.9 Type 2 diabetes mellitus without complications (principal); Z71.3 Dietary counseling and surveillance; Z79.84 Long term (current) use of oral hypoglycemic drugs; Z79.4 Long term (current) use of insulin
CPT/HCPCS: 97803

== ENCOUNTER → 2024-08-09 15:03 | Outpatient (CLI) | payer OTHER, SELFPAY ==
[2023-12-16 18:57] VITALS: BMI 27.6
--- NOTE | 2024-08-09 17:24 | DIAB.MNTFU ---
Addendum entered by Mirian Collins 08/10/24 16:37: Service date 08/09/24 Original Note: Follow-up Diabetes Medical Nutrition Therapy Assessment Name: Igor Howard Time: 310-440p Dx: Type II Diabetes Provider: Reva Costa presents for DM follow-up. Reports eating twice per day and usually taking 10u insulin at meals. Did have a corndog today and no insulin with BG >250mg/dl. States he is choosing lower CHO snacks, ie walnuts. Still having hyperglycemia. May benefit from insulin pump therapy, given MDI and risk of lows with ETOH intake. Continues with 6-10 servings per day of lower CHO ETOH. Last night he was up late with stress r/t his father's estate. BG over 250mg/dl at 230am, denies eating, only drinking ETOH and dancing to help with stress. Saw amusement centre manager without concern, some liver impact reported, ie fatty liver. Stubbed toe months ago and still has remnants of injury. he is worried about this. helped him access portal to message provider. Last Visit Diet recall: 10-2p: bagel with butter and or cheese or eng muffin with pb 7-8p: pasta last night using less pasta and added meat sn: apple or energy bar with 31g CHO Anthropometrics: Ht: 6' Wt: 207# 04/2024 Physical Activity: No program. Self-Monitoring Blood Glucose: Wearing CGM. Reduced time in range even since one week ago, which may be exacerbated by ETOH intake. Today TIR: 30% very high 66% high 4% in range 0% low 0% very low avmg/dl std dev: 46 mg/dl GMI: 9% variation: 19.2% Previous TIR: 48% very high 41% high 11% in range 0% low <1% very low avmg/dl std dev: 73 mg/dl GMI: 9.6% variation: 28% Diabetes Medications: 42u Glargine 10mg Glipizide 10mg Jardiance-- not started -- d/c 10u Aspart TID (with correction, up to 15u TID based on basal rate) Pertinent Labs: HgA1c: 10.1% 02/2024 Past Medical History: (Last Updated 11/26/24 @ 14:37 by Alex Tam DO) Acute strain of neck muscle Alcohol use disorder, severe, dependence Depression, unspecified Diabetes Hypertension Trauma and stressor-related disorder Nutrition Rx: Carbohydrates: Meal:45g Snack:15-30g Nutrition Diagnosis: - Excessive ETOH intake r/t stress drinking and cravings aeb pt report- in progress Intervention: This participant was very receptive. Provided appropriate educational handouts. Discussed the following topics: Strategies for reducing ETOH intake CGM review and trends and goals Strategies for DM medications and potential for insulin pump option, pro/cons, options in types Stress management strategies Medication management: taking mealtime insulin consistently, potential for needing higher basal dose Created SMART goals for patient self-care and success. Goals: Practice Rule of 15 for lows prn- continued Try 8-10u mealtime insulin- met Keep ETOH to 6 or less- in progress Try 10-12u with meals- new Follow-up: TEDDY GUNN follow-up in 1 week or less over phone after RD chats with PCP about a plan. f/u scheduled in two weeks. Mirian Collins RDN, CDCES Certified Diabetes Care and Electronic Test Technician P: [phone] Thank you for this referral
== END ==
PROVIDERS: PCP Family Medicine; Referring Provider Family Medicine
DX: E11.9 Type 2 diabetes mellitus without complications (principal); Z79.4 Long term (current) use of insulin; Z79.84 Long term (current) use of oral hypoglycemic drugs; Z71.3 Dietary counseling and surveillance
CPT/HCPCS: 97803

== ENCOUNTER → 2024-08-25 14:31 | Outpatient (CLI) | payer OTHER, SELFPAY ==
[2023-12-16 18:57] VITALS: BMI 27.6
--- NOTE | 2024-08-25 14:33 | DIAB.FU ---
Addendum entered by Mirian Collins 09/02/24 09:43: Checking blood sugars with CGM daily. 4 injections per day with basal and bolus (meal and/or correction) Original Note: Follow-up Diabetes Education Assessment Name: Igor Howard Date: 08/25/23 Time: 230-3 Dx: Type II Diabetes Provider: Reva Costa presents for DM follow-up virtually using Portal. Reports eating twice per day and usually taking 10-12u insulin at meals. Choosing fruit instead of dessert and trail mix with plenty nuts. Choosing HB eggs. Still having hyperglycemia, with slight improvement. Waiting on pump and [employer] CGM supplies. Continues struggling with ETOH. No change this visit on consumption per report. Finances are a barrier still. Seriously thinking about going back to work. Thinks the drowsiness is improving. Usually drowsy around 2-4p. This is a great improvement compared to previous visits where he felt going back to work was not at all possible yet. Reports difficulty affording proteins and better quality foods. Feels going back to work would help with this. Getting concussion tx per report. Anthropometrics: Ht: 6' Wt: 207# 04/2024 Physical Activity: No program. Self-Monitoring Blood Glucose: Wearing CGM. Slight improvement in time in range however increased over 250mg/dl time. Today TIR: 35% very high 58% high 7% in range 0% low 0% very low avmg/dl std dev: 46 mg/dl GMI: 9% variation: 19.4% Previous TIR: 30% very high 66% high 4% in range 0% low 0% very low avmg/dl std dev: 46 mg/dl GMI: 9% variation: 19.2% Diabetes Medications: 45u Glargine AM 10mg Glipizide 10mg Jardiance-- not started -- d/c 10-12u Aspart TID (with correction, up to 15u TID based on basal rate) Pertinent Labs: HgA1c: 10.1% 02/2024 Past Medical History: (Last Updated 07/19/24 @ 14:37 by Alex Tam DO) Acute strain of neck muscle Alcohol use disorder, severe, dependence Depression, unspecified Diabetes Hypertension Trauma and stressor-related disorder Nutrition Rx: Carbohydrates: Meal:45g Snack:15-30g Nutrition Diagnosis: - Excessive ETOH intake r/t stress drinking and cravings aeb pt report- in progress - Limited access to food r/t financial constraints aeb pt report- continued Intervention: This participant was very receptive. Provided appropriate educational handouts. Discussed the following topics: Medication management: small titration of insulin before starting insulin pump therapy Stress management Food insecurity and current food strategies Risk for lows and monitoring and tx Created SMART goals for patient self-care and success. Goals: Keep ETOH to 6 or less- in progress Try 10-12u with meals- met Try 15u at meals- new Try 48u tomorrow and 50u on Thursday for glargine - new Be attentive to potential lows- new Follow-up: TEDDY GUNN follow-up in 2-3 weeks. Mirian Collins RDN, LUIS A Certified Diabetes Care and Conference And Event Organiser P: [phone] Thank you for this referral
== END ==
PROVIDERS: PCP Family Medicine; Referring Provider Family Medicine
DX: E11.65 Type 2 diabetes mellitus with hyperglycemia (principal); Z71.3 Dietary counseling and surveillance; Z79.84 Long term (current) use of oral hypoglycemic drugs; Z79.4 Long term (current) use of insulin
CPT/HCPCS: G0108

== ENCOUNTER → 2024-08-27 14:11 | Outpatient (CLI) | payer OTHER, SELFPAY ==
[2023-12-16 18:57] VITALS: BMI 27.6
--- NOTE | 2024-08-27 14:13 | DI.MRI.S_ITS ---
PROCEDURE: MR ABDOMEN WO/W CON INDICATIONS: Recheck on kidney cyst/mass TECHNIQUE: Coronal HASTE through abdomen and pelvis; axial 2D FLASH in- and [id number] (with and without fat saturation), and breath-hold T2 FSE from the hepatic dome to the bottom of the kidneys. Coronal HASTE MR urogram of kidneys and bladder. Dynamic coronal VIBE during IV gadolinium administration; postgadolinium axial VIBE or 2D FLASH with fat saturation from the hepatic dome through the kidneys. COMPARISON: [facility], , MR ABDOMEN WO/W CON, 03/14/2024, 13:02. FINDINGS: Image quality: Diagnostic. Kidneys and Ureters: No hydronephrosis. No solid mass. No complex renal cystic lesion which requires follow up. There is a cyst on the superior pole of the left kidney which has increased in size, measuring 8.9 x 5.5 cm, previously 6.8 x 3.7 cm; no suspicious nodularity or internal septations. OTHER: Lung bases: Unremarkable. Liver: Moderate hepatic steatosis. Again seen are multiple lesions which demonstrate T2 intermediate signal and flash filling, which persist on the delayed phase; these are most consistent with hemangioma since. Gallbladder: No gallstones or wall thickening. Biliary ducts: No biliary dilation. Pancreas: No ductal dilation. Punctate dilated side branch in the pancreatic body (series 5, image 23). Spleen: Size is within normal limits. Adrenal Glands: No adrenal nodules. Stomach and Bowel: Normal colonic caliber, without significant wall thickening. Colonic diverticulosis without evidence of diverticulitis. Peritoneum: No abnormal intraperitoneal fluid. No free air. Ventral Wall: No hernia. Abdominal Nodes: No retroperitoneal or mesenteric adenopathy by size criteria. Vessels: Aorta and inferior vena cava are normal in size. Bones: No aggressive osseous abnormality. IMPRESSION: Slight interval growth of the non complex cystic lesion on the superior pole of the left kidney. No suspicious features. This is a Bosniak 1 cystic lesion which requires no further follow-up. Again seen are multiple benign hepatic hemangiomas. At least moderate hepatic steatosis. Correlate with elevated liver enzymes, as findings could indicate steatohepatitis. Dictated by: Jesus Hensley M.D. on 08/29/2024 at 10:29 Approved by: Jesus Hensley M.D. on 08/29/2024 at 10:42
== END ==
PROVIDERS: PCP Family Medicine; Referring Provider Family Medicine; Visit Provider Family Medicine
DX: N28.1 Cyst of kidney, acquired (principal); R19.09 Other intra-abdominal and pelvic swelling, mass and lump; K76.0 Fatty (change of) liver, not elsewhere classified; K76.9 Liver disease, unspecified; K57.90 Diverticulosis of intestine, part unspecified, without perforation or abscess without bleeding; D18.03 Hemangioma of intra-abdominal structures
CPT/HCPCS: 74183; A9579

== ENCOUNTER → 2024-09-16 13:40 | Outpatient (CLI) | payer OTHER, SELFPAY ==
[2023-12-16 18:57] VITALS: BMI 27.6
--- NOTE | 2024-09-27 15:37 | DIAB.MNTFU ---
Follow-up Diabetes Medical Nutrition Therapy Assessment Name: Igor Howard Date: 09/16/24 Time: 130-210p Dx: Type II Diabetes Provider: Reva Costa presents for DM follow-up virtually using Portal. Takinu long acting 15-20u at meals 15u at breakfast 20u at dinner Trying 25u at dinner Starting work on 09/26. Somewhat looking forward to this to help with financial stress and socialization. Overall, sleepiness has improved. Trying to move more. Financial impact on food choices. Eating more pasta at dinner. Eating broccoli and cheddar. Trying to watch portions. Proteins right now include tuna, beef when affordable, frozen dinner. [employer] mix sometimes ETOH: no change right now Eating 2-3 meals per day, maybe 1 snack per day Endorses bigger portions at dinner. 2-4p: Portuguese muffing and pb or egg 6-8 dinner: 10-11p snack or meal; RD will message PCP workgroup about need for insulin vials for pump therapy. Anthropometrics: Ht: 6' Wt: 207# 04/2024 Physical Activity: No program. Self-Monitoring Blood Glucose: Wearing CGM. Still below goal for TIR but improved in range time. FBG inconsistent, sometimes in range or close to 180mg/dl. Often in 200s later in the day after eating. Today TIR: 23% very high 51% high 26% in range 0% low 0% very low avmg/dl std dev: 53 mg/dl GMI: 8.5% variation: 24.6% Last TIR: 35% very high 58% high 7% in range 0% low 0% very low avmg/dl std dev: 46 mg/dl GMI: 9% variation: 19.4% Diabetes Medications: 50u Glargine AM 10mg Glipizide 10mg Jardiance-- not started -- d/c 10-20u Aspart TID (with correction, up to 15u TID based on basal rate) Pertinent Labs: HgA1c: 10.1% 02/2024 Past Medical History: (Last Updated 07/19/24 @ 14:37 by Alex Tam DO) Acute strain of neck muscle Alcohol use disorder, severe, dependence Depression, unspecified Diabetes Hypertension Trauma and stressor-related disorder Nutrition Rx: Carbohydrates: Meal:45g Snack:15-30g Nutrition Diagnosis: - Excessive ETOH intake r/t stress drinking and cravings aeb pt report- in progress - Limited access to food r/t financial constraints aeb pt report- continued - Excessive CHO r/t food choices and financial access to cheaper CHO foods aeb pt report- new Intervention: This participant was very receptive. Provided appropriate educational handouts. Discussed the following topics: Medication management: small titration of insulin before starting insulin pump therapy Carb counting and portions Keeping quick sugar in car and self at work Risk for lows and monitoring and tx More affordable proteins and veggies Created SMART goals for patient self-care and success. Goals: Try 15u at meals- met Try 48u tomorrow and 50u on Thursday for glargine - met Be attentive to potential lows- continue Try to keep CHO at dinner to 1c Try 20-25u at dinner- new 15-20u at breakfast- new Keep quick sugar in car and at work- new Follow-up: TEDDY GUNN follow-up in 3-4 weeks hopefully for insulin pump set up if he receives all equipment by that time. Mirian Collins RDN, LUIS A Certified Diabetes Care and Crusher Plant Operator P: [phone] Thank you for this referral
== END ==
PROVIDERS: PCP Family Medicine; Referring Provider Family Medicine
DX: E11.9 Type 2 diabetes mellitus without complications (principal); Z79.84 Long term (current) use of oral hypoglycemic drugs; Z79.4 Long term (current) use of insulin; Z71.3 Dietary counseling and surveillance
CPT/HCPCS: 97803

== ENCOUNTER → 2024-09-29 10:14 | Outpatient (CLI) | payer OTHER, SELFPAY ==
[2023-12-16 18:57] VITALS: BMI 27.6
--- NOTE | 2024-09-29 10:18 | DIAB.FU ---
Addendum entered by Mirian Collins 11/08/24 08:48: Not a virtual visit. In-person insulin pump and CGm placement this visit. Addendum entered by Mirian Collins 10/28/24 08:10: Note that personal new personal CGM self placement and education was completed with insulin pump education. Switch from Dexcom to Guardian CGM. Original Note: Follow-up Diabetes Education Assessment Name: LeeIgor Lin Date: 09/29/24 Time: 1015-6880a Dx: Type II Diabetes Provider: Reva Costa presents for DM follow-up virtually using Portal. Takinu long acting 25-30u at meals Recently more lows, particularly at 5am over the last week. Back to work, which has been good per report. Down to 3-4 ETOH now with starting work. Eating breakfast sandwich in the morning 30g CHO Lunch at work often soup or campbells chili mac x <2 cans some fast food or leftovers at dinner. Has some visible scar tissue in abdomen. Anthropometrics: Ht: 6' Wt: 216# 06/2024 207# 04/2024 Physical Activity: No program. Self-Monitoring Blood Glucose: In time range is much improved, almost to goal of 70%+. More lows recently, seemingly from over estimating insulin needs at dinner. Today TIR: 3% very high 27% high 69% in range 1% low <1% very low avmg/dl std dev: 47 mg/dl GMI: 7.1% variation: 29.9% Last TIR: 23% very high 51% high 26% in range 0% low 0% very low avmg/dl std dev: 53 mg/dl GMI: 8.5% variation: 24.6% Diabetes Medications: 50u Glargine AM-- d/c as of today 25-30uu Aspart TID (2-3x/ day)-- d/c as of today Aspart via insulin pump Pertinent Labs: HgA1c: 10.1% 02/2024 Past Medical History: (Last Updated 07/19/24 @ 14:37 by Alex Tam DO) Acute strain of neck muscle Alcohol use disorder, severe, dependence Depression, unspecified Diabetes Hypertension Trauma and stressor-related disorder Intervention: This participant was very receptive. Provided appropriate educational handouts. Discussed the following topics: Carb counting review Insulin pump education/placement Scar tissue and insulin injections Created SMART goals for patient self-care and success. Goals: Try to keep CHO at dinner to 1c- in progress Try 20-25u at dinner- met 15-20u at breakfast- met Keep quick sugar in car and at work- met Wear new equipment- new Enter carbs and correction via pump- new Follow-up: TEDDY GUNN follow-up in 1 week. 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 Mirian Collins, TEDDY, CDCES Certified Diabetes Care and Online Marketing Director P: [phone] Thank you for this referral
== END ==
LOC: DIET 10:14
PROVIDERS: PCP Family Medicine; Referring Provider Family Medicine
DX: Z45.1 Encounter for adjustment and management of infusion pump (principal); E11.9 Type 2 diabetes mellitus without complications; Z96.41 Presence of insulin pump (external) (internal); Z79.4 Long term (current) use of insulin
CPT/HCPCS: 83036; G0108

== ENCOUNTER → 2024-10-06 09:59 | Outpatient (CLI) | payer OTHER, SELFPAY ==
[2023-12-16 18:57] VITALS: BMI 27.6
--- NOTE | 2024-11-08 08:43 | DIAB.FU ---
Follow-up Diabetes Education Assessment Name: Igor Howard Date: 10/06/24 Time: 1473-7514 Dx: Type II Diabetes Provider: Reva Costa presents for DM follow-up. Changed I:C to 6.5 (from 7.2) to better manage hyperglycemia. TDD: 68.9u Bolus 36.6u auto correction: 14.3u Needs guidance on sensor and infusion set change. Using pump belt for more comfort. Anthropometrics: Ht: 6' Wt: 216# 06/2024 207# 04/2024 Physical Activity: No program. Self-Monitoring Blood Glucose: In time range continues to improve. Also reduced time for lows. Today TIR: 1% very high 24% high 75% in range 0% low 0% very low avmg/dl std dev: mg/dl GMI: % variation: 20.5% Last TIR: 3% very high 27% high 69% in range 1% low <1% very low avmg/dl std dev: 47 mg/dl GMI: 7.1% variation: 29.9% Diabetes Medications: Aspart via insulin pump Pertinent Labs: HgA1c: 10.1% 02/2024 Past Medical History: (Last Updated 07/19/24 @ 14:37 by Alex Tam DO) Acute strain of neck muscle Alcohol use disorder, severe, dependence Depression, unspecified Diabetes Hypertension Trauma and stressor-related disorder Intervention: This participant was very receptive. Provided appropriate educational handouts. Discussed the following topics: sensor and infusion set change Adjustment for I:C Bolusing Goals: Wear new equipment- met Enter carbs and correction via pump- met Continue bolusing- new Follow-up: TEDDY GUNN follow-up in 2-3 weeks Mirian Collins RDN, LUIS A Certified Diabetes Care and Account Service Representative P: [phone] Thank you for this referral
== END ==
PROVIDERS: PCP Family Medicine; Referring Provider Family Medicine
DX: E11.65 Type 2 diabetes mellitus with hyperglycemia (principal); Z71.3 Dietary counseling and surveillance; Z79.4 Long term (current) use of insulin; Z96.41 Presence of insulin pump (external) (internal)
CPT/HCPCS: G0108

== ENCOUNTER → 2024-10-20 11:23 | Outpatient (CLI) | payer OTHER, SELFPAY ==
[2023-12-16 18:57] VITALS: BMI 27.6
--- NOTE | 2024-11-08 08:56 | DIAB.FU ---
Follow-up Diabetes Education Assessment Name: Igor Howard Date: 10/20/24 Time: 1130-12 Dx: Type II Diabetes Provider: Reva Costa presents for DM follow-up. On manual mode without sensor. Has also left infusion set on for two weeks. Needing to order new supplies. just received new sensors but has not placed. states he is following a more low CHO keto diet. A lot of nuts and veggies, and meat. Using pens to fill reservoir. No PCP appt on schedule. IC: 6.5 TDD: 57.3u Bolus 24.2u auto correction: 14.3u Anthropometrics: Ht: 6' Wt: 216# 06/2024 207# 04/2024 Physical Activity: No program. Self-Monitoring Blood Glucose: In time range continues to improve. In goal per reports available, missing data with no sensor recently. Today TIR: 0% very high 7% high 93% in range 0% low 0% very low avmg/dl std dev: mg/dl GMI: % variation: 23.1% Last TIR: 1% very high 24% high 75% in range 0% low 0% very low avmg/dl std dev: mg/dl GMI: % variation: 20.5% Diabetes Medications: Aspart via insulin pump Pertinent Labs: HgA1c: 10.1% 02/2024 Past Medical History: (Last Updated 07/19/24 @ 14:37 by Alex Tam DO) Acute strain of neck muscle Alcohol use disorder, severe, dependence Depression, unspecified Diabetes Hypertension Trauma and stressor-related disorder Intervention: This participant was very receptive. Provided appropriate educational handouts. Discussed the following topics: Importance of changing infusion set to avoid infection and keep infusion adequate guided on CGM sensor placement Review of ordering supplies Batter replacement Vials v pens Goals: Continue bolusing- met Ask pharmacy for vials- new use diabetes.shop to track/order supplies- new Schedule PCP visit- new Change infusion set q week- new Follow-up: TEDDY GUNN follow-up in 3-4 weeks Mirian Collins RDN, LUIS A Certified Diabetes Care and Wet Machine Cutter P: [phone] Thank you for this referral
== END ==
PROVIDERS: PCP Family Medicine; Referring Provider Family Medicine
DX: E11.9 Type 2 diabetes mellitus without complications (principal); Z71.3 Dietary counseling and surveillance; Z79.4 Long term (current) use of insulin; Z96.41 Presence of insulin pump (external) (internal)
CPT/HCPCS: G0108

== ENCOUNTER → 2024-11-25 10:51 | Outpatient (CLI) | payer BC, OTHER, SELFPAY ==
[2023-12-16 18:57] VITALS: BMI 27.6
--- NOTE | 2024-12-16 11:17 | DIAB.FU ---
Follow-up Diabetes Education Assessment Name: Igor Howard Date: 11/25/24 Time: 11a-12p Dx: Type II Diabetes Provider: Reva Costa presents for DM follow-up. Worried about running out of insulin due to running out of vials from spilling some during a reservoir change. Has now used up his insulin pens. States he feels he has to conserve or ration insulin right now Rx needs to be updated to provide some wiggle room on use and reduce rationing it seems. RD messaged PCP workgroup. Does not have PCP visit scheduled. IC: 6.5 ISF: 1: 29 TDD: 57.3u---- 75u/day Anthropometrics: Ht: 6' Wt: 216# 06/2024 207# 04/2024 Physical Activity: No program. Self-Monitoring Blood Glucose: In goal time in range, however some increase in elevations since last visit. Today TIR: 0% very high 18% high 81% in range 0% low 0% very low avmg/dl std dev: 35 mg/dl GMI: 6.9% variation: 23.2% Last TIR: 0% very high 7% high 93% in range 0% low 0% very low avmg/dl std dev: mg/dl GMI: % variation: 23. Diabetes Medications: Aspart via insulin pump Pertinent Labs: HgA1c: 10.1% 02/2024 Past Medical History: (Last Updated 07/19/24 @ 14:37 by Alex Tam DO) Acute strain of neck muscle Alcohol use disorder, severe, dependence Depression, unspecified Diabetes Hypertension Trauma and stressor-related disorder Intervention: This participant was very receptive. Provided appropriate educational handouts. Discussed the following topics: Importance of keeping pens on hand prn RD messaged staff to consider increase to 90u/day to provide enough insulin day to day Strategies for reducing running out of supplies Goals: Ask pharmacy for vials- met use diabetes.shop to track/order supplies- met Schedule PCP visit- in progress Change infusion set q week- met Make PCP visit- continue Ask pharmacy for auto refill for insulin- new Call [facility] [employer] about supply refill schedule- new Follow-up: TEDDY GUNN follow-up in 3-4 weeks. Will review nutrition again next visit. Mirian Collins RDN, LUIS A Certified Diabetes Care and Blender P: [phone] Thank you for this referral
== END ==
PROVIDERS: PCP Family Medicine; Referring Provider Family Medicine
DX: E11.9 Type 2 diabetes mellitus without complications (principal); Z71.3 Dietary counseling and surveillance; Z79.4 Long term (current) use of insulin; Z96.41 Presence of insulin pump (external) (internal)
CPT/HCPCS: G0108

== ENCOUNTER → 2025-01-06 13:00 | Outpatient (CLI) | payer BC, OTHER, SELFPAY ==
[2023-12-16 18:57] VITALS: BMI 27.6
--- NOTE | 2025-01-06 15:29 | DIAB.FU ---
Follow-up Diabetes Education Assessment Name: Igor Howard Date: 01/06/25 Time: 1-135p Dx: Type II Diabetes Provider: Reva Costa presents for DM follow-up. PCP has increased insulin rx, which has put Igor at ease about running out of insulin. Has had weight gain since improved BG. Per previous EMR weights UBW 198-206#. Highest wt of 239# in 2019. Recent wt 232# 11/2024. Reports continued stress with dealing with father's estate. States ETOH intake is still a work in progress. States he is struggling with pump alarms. Has remedied the alarm for set changes q 2 days, when he is doing changes q 7 days. Other alert is when CGm needs BG entry, which cannot be changed. Has question about reusable transmitter and how long it lasts. Has called [employer] and is on autorefills. Has not done with with his insulin at pharmacy yet. IC: 6.5 ISF: 1: 29 TDD: 57.3u---- 75u/day ---- 52.2u Anthropometrics: Ht: 6' Wt: 232# 11/2024 216# 06/2024 207# 04/2024 Physical Activity: No program. Considering restarting golf for activity Self-Monitoring Blood Glucose: In goal time in range with improved reduced hyperglycemia. Today TIR: 0% very high 9% high 91% in range 0% low 0% very low avmg/dl std dev: 31 mg/dl GMI: 6.6% variation: % Last TIR: 0% very high 18% high 81% in range 0% low 0% very low avmg/dl std dev: 35 mg/dl GMI: 6.9% variation: 23.2% Diabetes Medications: Aspart via insulin pump Pertinent Labs: HgA1c: 10.1% 02/2024 6.9% 09/2024 Past Medical History: (Last Updated 07/19/24 @ 14:37 by Alex Tam DO) Acute strain of neck muscle Alcohol use disorder, severe, dependence Depression, unspecified Diabetes Hypertension Trauma and stressor-related disorder Intervention: This participant was very receptive. Provided appropriate educational handouts. Discussed the following topics: weight gain and strategies to reduce ETOH kcals and impact on wt Physical activity Alarm settings on pump Transmitter lifespan and future [employer] CGM sensors Strategies for reducing running out of supplies Goals: Make PCP visit- met Ask pharmacy for auto refill for insulin- in progress Call [employer] about supply refill schedule- met Restart golf- new Continue working on reducing ETOH intake- new Follow-up: TEDDY GUNN follow-up in 5 months per pt request. DM well managed. Offered sooner visit for MNT and weight management. Wants to try to make some changes first. Encouraged sooner visit prn. He agreed. Mirian Collins RDN, [facility] Certified Diabetes Care and Waffle Machine Operator P: [phone] Thank you for this referral
== END ==
PROVIDERS: PCP Family Medicine; Referring Provider Family Medicine
DX: E11.65 Type 2 diabetes mellitus with hyperglycemia (principal); Z79.4 Long term (current) use of insulin; Z96.41 Presence of insulin pump (external) (internal); Z71.3 Dietary counseling and surveillance
CPT/HCPCS: G0108

== ENCOUNTER → 2025-05-05 11:16 | Outpatient (CLI) | payer BC, OTHER, SELFPAY ==
[2023-12-16 18:57] VITALS: BMI 27.6
--- NOTE | 2025-05-05 11:19 | DI.RAD.S_ITS ---
PROCEDURE: XR CHEST 2V INDICATIONS: SOB, persistent TECHNIQUE: 2 views of the chest were acquired. COMPARISON: None. FINDINGS: Surgical changes and devices: None. Lungs and pleura: Mild pulmonary vascular congestion. No definite focal infiltrate. No pleural effusions or pneumothorax. Mediastinum: Mediastinal contours are normal. Heart size is mildly enlarged. Bones and chest wall: No suspicious bony abnormalities. Soft tissues appear unremarkable. IMPRESSION: Cardiomegaly and mild congestion. No definite focal infiltrate. No pleural effusion or pneumothorax. Poor inspiratory effort. Dictated by: Yogi Esquivel M.D. on 05/05/2025 at 13:53 Approved by: Yogi Esquivel M.D. on 05/05/2025 at 13:53
== END ==
LOC: RAD 11:19
PROVIDERS: PCP Family Medicine; Referring Provider Family Medicine; Visit Provider Family Medicine
DX: I51.7 Cardiomegaly (principal); R06.02 Shortness of breath; R09.89 Other specified symptoms and signs involving the circulatory and respiratory systems
CPT/HCPCS: 71046

== ENCOUNTER → 2025-05-10 10:32 | Outpatient (CLI) | payer BC, OTHER, SELFPAY ==
[2023-12-16 18:57] VITALS: BMI 27.6
--- NOTE | 2025-05-10 10:33 | DI.ECHO.S_ITS ---
[facility]+ [facility] : : [address] : : [place] : : [address] : : Phone: [phone] Echocardiogram Report + + :Name: DARREN REBOLLEDO Study Date: 05/10/2025 Height: 72 in : :Hospital ReadingLocation: Weight: 217 lb: : Gender: Male BSA: 2.2 m2 : :: 1970 Age: 54 yrs : :Reason For Study: SHORTNESS OF BREATH : :Ordering Physician: JENI, : :NATE Performed By: Ever Patel : :Referring: NATE NGO : + + Interpretation Summary The study quality was technically difficult. Left ventricular wall thickness is mildly increased. The ejection fraction is estimated to be 50-55%. Normal diastolic function. The right ventricle is normal in size and function. Pulmonary artery pressures cannot be estimated because of the lack of a measurable TR jet velocity. No obvious valvular abnormalities. Procedure: A two-dimensional transthoracic echocardiogram with color flow and Doppler was performed. A contrast injection of Definity was performed to improve assessment of LV function. The study quality was technically difficult. There is no prior echocardiogram noted for this patient. The patient was in normal sinus rhythm during the exam. Left Ventricle: The left ventricle is normal in size. Left ventricular wall thickness is mildly increased. There is no ventricular septal defect visualized. The ejection fraction is estimated to be 50-55%. Normal diastolic function. Right Ventricle: The right ventricle is normal in size and function. Atria: The left atrial size is normal. Right atrial size is normal. The interatrial septum is not well visualized. Mitral Valve: The mitral valve leaflets appear normal. There is no evidence of stenosis, fluttering, or prolapse. There is no mitral regurgitation noted. Aortic Valve: The aortic valve is trileaflet. The aortic valve opens well. There is no aortic valve stenosis. No aortic regurgitation is present. Tricuspid Valve: The tricuspid valve is not well visualized, but is grossly normal. No tricuspid regurgitation. Pulmonary artery pressures cannot be estimated because of the lack of a measurable TR jet velocity. Pulmonic Valve: The pulmonic valve is not well seen, but is grossly normal. There is no pulmonic valvular regurgitation. Great Vessels: The aortic root is mildly dilated. The dimensions of the ascending aorta are normal. The pulmonary artery is normal size. The inferior vena cava was not visualized. Pericardium/ Pleura There is no pericardial effusion. MMode/2D Measurements & Calculations LVIDd: 4.6 cm LVOT diam: 2.5 cm LVIDs: 2.8 cm Ao root diam: 3.9 cm FS: 39.1 % asc Aorta Diam: 3.5 cm EPSS: 0.69 cm IVSd: 1.2 cm LVPWd: 1.1 cm LV slade. diameter/BSA (cm/m^2): 2.1 LV sys. diameter/BSA (cm/m^2): 1.3 LA A2 area: 17.6 cm2 RA long axis: 4.3 cm LA A4 area: 21.4 cm2 RA area: 9.8 cm2 LA length (vol): 6.0 cm RA vol: 19.0 ml LA vol: 53.0 ml RA : 8.6 ml/m2 LA vol index: 24.0 ml/m2 RVD1 (basal): 3.8 cm RVD2 (mid): 3.1 cm TAPSE: 2.3 cm Doppler Measurements & Calculations Ao V2 max: 100.2 cm/sec LVOT Max Efra: 85.5 cm/sec Ao V2 mean: 76.3 cm/sec LV V1 max P.9 mmHg Ao max P.0 mmHg LV V1 VTI: 14.9 cm Ao mean P.5 mmHg OLIVE(I,D): 4.3 cm2 Ao V2 VTI: 16.8 cm OLIVE(V,D): 4.1 cm2 sev ratio: 0.88 OLIVE indexed to BSA (cm^2/m^2): 1.9 MV E max efra: 59.8 cm/sec PA V2 max: 107.7 cm/sec MV A max efra: 74.2 cm/sec PA V2 mean: 65.6 cm/sec MV E/A: 0.81 PA mean P.0 mmHg Med Peak E' Efra: 6.1 cm/sec PA pr(Accel): 55.0 mmHg E/E' med: 9.7 Lat Peak E' Efra: 8.6 cm/sec E/E' lat: 6.9 E/e' average: 8.3 MV dec time: 0.17 sec SV(LVOT): 72.3 ml Reading Physician:03:07 PM
== END ==
LOC: ECHO 10:32
PROVIDERS: PCP Family Medicine; Referring Provider Family Medicine; Visit Provider Family Medicine
DX: I77.810 Thoracic aortic ectasia (principal); F10.20 Alcohol dependence, uncomplicated; K76.0 Fatty (change of) liver, not elsewhere classified; E11.69 Type 2 diabetes mellitus with other specified complication; R06.2 Wheezing; M79.89 Other specified soft tissue disorders
CPT/HCPCS: C8929; Q9957

== ENCOUNTER → 2025-06-21 10:27 | Outpatient (CLI) | payer BC, OTHER, SELFPAY ==
[2023-12-16 18:57] VITALS: BMI 27.6
--- NOTE | 2025-07-19 10:01 | DIAB.MNTFU ---
Follow-up Diabetes Medical Nutrition Therapy Assessment Name: Igor Howard Date: 06/21/25 Time: 5078-6100a Dx: Type II Diabetes Provider: Reva Costa presents for DM follow-up. pump disconnected from [employer] and platform where we can see data. States his tastebuds have changed. Endorses a pinched nerve, which has impacted his health in a variety of ways. meat tastes weird, cannot lay down (endorses sob/panic), poor sleep, shoulder pain, reduced ROM. Working with PCP on this. States he is fending off depression and as a result has been eating convenience foods mostly. Diet recall; noon: nuts 6p: frozen dinner 10-11pm: nothing or leftovers water 24oz milk 6-8oz hard seltzers 12oz x 6-8 Reduced eating occurrences and portions reported. Excessive ETOH intake. Reduced working days to 2 per week. IC: 6.5 ISF: 1: 29 TDD: 57.3u---- 75u/day ---- 52.2u---40.925u Anthropometrics: Ht: 6' Wt: 226# reported 05/2025 232# 11/2024 216# 06/2024 207# 04/2024 Physical Activity: No program. Self-Monitoring Blood Glucose: In goal time in range with slight increase in hyperglycemia. Today TIR: 1% very high 10% high 89% in range 0% low 0% very low avmg/dl std dev: 3132 mg/dl GMI: 6.6% variation: 23.2% Last TIR: 0% very high 9% high 91% in range 0% low 0% very low avmg/dl std dev: 31 mg/dl GMI: 6.6% variation: % Diabetes Medications: Aspart via insulin pump Pertinent Labs: HgA1c: 10.1% 02/2024 6.9% 09/2024 Past Medical History: (Last Updated 07/19/24 @ 14:37 by Alex Tam DO) Acute strain of neck muscle Alcohol use disorder, severe, dependence Depression, unspecified Diabetes Hypertension Trauma and stressor-related disorder Nutrition Rx: Carbohydrates: Meal:45gSnack:15-30g Nutrition Diagnosis: - Excessive ETOH intake r/t stress drinking and cravings aeb pt report- in progress - Inconsistent energy intake r/t limited appetite aeb pt report and diet recall- new Intervention: This participant was very receptive. Provided appropriate educational handouts. Discussed the following topics: Stress management Eating frequency and strategies for consistent sm/freq meals/snacks Troubleshooting reconnection of pump to [employer] Nutrition recs for portions and easy meals Strategies for reducing running out of supplies Goals: Restart golf- not met Continue working on reducing ETOH intake- in progress Add 8oz milk at 10p as snack, especially if no dinner- new Follow-up: TEDDY GUNN follow-up in 4-6 weeks Mirian Collins RDN, LUIS A Certified Diabetes Care and Hand Marker P: [phone] Thank you for this referral
== END ==
LOC: DIET 10:28
PROVIDERS: PCP Family Medicine; Referring Provider Family Medicine
DX: E11.65 Type 2 diabetes mellitus with hyperglycemia (principal); Z71.3 Dietary counseling and surveillance; Z96.41 Presence of insulin pump (external) (internal); Z79.4 Long term (current) use of insulin
CPT/HCPCS: 97803

== ENCOUNTER → 2025-06-30 12:27 | Outpatient (CLI) | payer BC, SELFPAY ==
[2023-12-16 18:57] VITALS: BMI 27.6
--- NOTE | 2025-06-30 12:29 | DI.RAD.S_ITS ---
PROCEDURE: FL FLUOROSCOPY >1HR
== END ==
LOC: RAD 12:28
PROVIDERS: PCP Family Medicine; Visit Provider Radiology Diagnostic Radiology
DX: R06.02 Shortness of breath (principal)
CPT/HCPCS: 76000

== ENCOUNTER → 2025-07-25 10:59 | Outpatient (CLI) | payer BC, SELFPAY ==
[2023-12-16 18:57] VITALS: BMI 27.6
--- NOTE | 2025-08-31 09:53 | DIAB.MNTFU ---
Follow-up Diabetes Medical Nutrition Therapy Assessment Name: Igor Howard Date: 07/25/25 Time: [id number] Dx: Type II Diabetes Provider: Reva Costa presents for DM follow-up. Getting better sleep lately. Reduced appetite lately. Eating a reported 1.5 meals per day. Choosing premade Factor meals, Keto versions, at dinner. Has been using milk as a meal substitute. May have an MRI done, has questions on how to manage pump during this. Reports potential for travelling. Has questions about low BG. Has not upgraded to new CGM. Diet recall; snack or breakfast: protein bar or eggs Dinner: premade dinner snack: nothing or milk water milk hard seltzers 1 Reduced eating occurrences and portions reported. Excessive ETOH intake. IC: 6.5 ISF: 1: 29 TDD: 57.3u---- 75u/day ---- 52.2u---40.92u--- 29.3u Anthropometrics: Ht: 6' Wt: 226# reported 05/2025 232# 11/2024 216# 06/2024 207# 04/2024 Physical Activity: No program. PT once per week. Self-Monitoring Blood Glucose: In goal time in range with improved hyperglycemia. Today TIR: 0% very high 4% high 96% in range 0% low 0% very low avmg/dl std dev: 27 mg/dl GMI: 6.1% variation: 23.2% Last TIR: 1% very high 10% high 89% in range 0% low 0% very low avmg/dl std dev: 3132 mg/dl GMI: 6.6% variation: 23.2% Diabetes Medications: Aspart via insulin pump Pertinent Labs: HgA1c: 10.1% 02/2024 6.9% 09/2024 Past Medical History: (Last Updated 07/19/24 @ 14:37 by Alex Tam DO) Acute strain of neck muscle Alcohol use disorder, severe, dependence Depression, unspecified Diabetes Hypertension Trauma and stressor-related disorder Nutrition Rx: Carbohydrates: Meal:45gSnack:15-30g Nutrition Diagnosis: - Excessive ETOH intake r/t stress drinking and cravings aeb pt report- in progress - Inconsistent energy intake r/t limited appetite aeb pt report and diet recall- continued Intervention: This participant was very receptive. Provided appropriate educational handouts. Discussed the following topics: Sleep and BG Eating frequency and strategies for consistent sm/freq meals/snacks Ordering upgrade for newer CGM option Traveling and MRI and insulin pump therapy use Treating lows Premade meals nutrition pros/cons Goals: Continue working on reducing ETOH intake- in progress Add 8oz milk at 10p as snack, especially if no dinner- met Contact [employer] for [employer]- new Use travel documents- new Eat TID- new Continue glass milk HS- new Follow-up: TEDDY GUNN follow-up in 2-3 months or sooner prn. Miiran Collins RDN, [facility] Certified Diabetes Care and System Admin P: [phone] Thank you for this referral
== END ==
LOC: DIET 11:00
PROVIDERS: PCP Family Medicine; Referring Provider Family Medicine
DX: E11.9 Type 2 diabetes mellitus without complications (principal); Z71.3 Dietary counseling and surveillance; Z79.4 Long term (current) use of insulin; Z96.41 Presence of insulin pump (external) (internal)
CPT/HCPCS: 97803

== ENCOUNTER → 2025-08-14 12:50 | Outpatient (CLI) | payer BC, SELFPAY ==
[2023-12-16 18:57] VITALS: BMI 27.6
--- NOTE | 2025-08-14 12:51 | DI.US.S_ITS ---
PROCEDURE: US VENOUS INSUFFICIENCY LTD INDICATIONS: leg edema b/l TECHNIQUE: Real time scanning was performed of the lower extremity venous system, with imaging documentation, as well as Color and pulse Doppler interrogation. COMPARISON: None. FINDINGS: RIGHT LOWER EXTREMITY: The deep veins are normally compressible, and free of intraluminal thrombus. Color and pulse Doppler demonstrate normal intravascular flow. There is normal augmentation with distal compression maneuver. Common femoral vein greater saphenous vein proximally were not visualized due to patient positioning. Greater saphenous vein (GSV): Normally 4 mm or less in diameter, with any reflux less than 0.5 seconds. Saphenofemoral junction (SFJ): Not visualized. Proximal GSV: 3 mm. No reflux. Mid GSV: 2 mm. Reflux at 1 second. Distal GSV: 2 mm. Reflux at 1 second. Calf GSV: 4 mm, and no reflux. Anterior accessory GSV (AAGSV): Anatomic variant not present across anterior thigh. Small saphenous vein (SSV): Posterior calf, draining into popliteal vein. Posterior calf: 3 mm. No reflux. Vein of Giacomini (posterior thigh connection between GSV and SSV): Anatomic variant not seen. LEFT LOWER EXTREMITY: The deep veins are normally compressible, and free of intraluminal thrombus. Color and pulse Doppler demonstrate normal intravascular flow. There is normal augmentation with distal compression maneuver. Greater saphenous vein (GSV): Normally 4 mm or less in diameter, with any reflux less than 0.5 seconds. Saphenofemoral junction (SFJ): Not visualized Proximal GSV: 3 mm. No reflux. Mid GSV: 2 mm. Reflux at 1 second. Distal GSV: 2 mm. Reflux at 1 second. Calf GSV: 2 mm. No reflux. Anterior accessory GSV (AAGSV): Anatomic variant not present across anterior thigh. Small saphenous vein (SSV): Posterior calf, draining into popliteal vein. Posterior calf: 2 mm. No reflux. Vein of Giacomini (posterior thigh connection between GSV and SSV): Anatomic variant not seen. IMPRESSION: Venous reflux of the mid and distal greater saphenous veins. Dictated by: Jesus Hensley M.D. on 08/15/2025 at 16:27 Approved by: Jesus Hensley M.D. on 08/15/2025 at 16:29
== END ==
LOC: US 12:50
PROVIDERS: Family Provider Family Medicine; PCP Family Medicine; Referring Provider Family Medicine; Visit Provider Internal Medicine Cardiovascular Disease
DX: I87.2 Venous insufficiency (chronic) (peripheral) (principal); R60.0 Localized edema
CPT/HCPCS: 93971